=== PATIENT | female | born 1975 | race Caucasian/White ===

== ENCOUNTER → 2016-11-10 | Emergency (ER) | payer MEDICAID | END | disposition left against medical advice (07) | LOC: ER 21:38 | DX: N93.9 Abnormal uterine and vaginal bleeding, unspecified (principal); Z53.21 Procedure and treatment not carried out due to patient leaving prior to being seen by health care provider ==

== ENCOUNTER 2016-11-12 12:31 | Day surgery (SDC) | payer MEDICAID ==
[~2016-11-12] VITALS: Ht 154.9 cm; Wt 63.0 kg
[2016-11-12 14:44] LABS: BASOPHILS % 0.5 % (0.0-2.0); EOSINOPHILS % 0.7 % (0.0-5.0); HEMATOCRIT. 39.3 % (36.0-48.0); HEMOGLOBIN. 13.4 g/dL (12.0-16.0); LYMPHOCYTES % 30.7 % (20.0-50.0); MEAN CORPUSCULAR HEMOGLOBIN 31.5 pg (28.0-32.0); MEAN CORPUSCULAR VOLUME 92.5 fL (81.0-99.0); MEAN PLATELET VOLUME 7.1 fl (7.4-10.4); MONOCYTES % 7.2 % (2.0-8.0); NEUTROPHILS % 60.9 % (40.0-76.0); PLATELET 246 x1000/uL (130-400); RED BLOOD CELL COUNT 4.25 mill/uL (4.2-5.4)
[2016-11-12 14:50] LABS: PROTHROMBIN TIME 10.7 sec (9.4-11.6)
[2016-11-12 15:04] LABS: CARBON DIOXIDE 27 mEq/L (21-32); CHLORIDE 106 mEq/L (98-107)
[2016-11-12 15:13] LABS: B-HCG QUANTITATIVE 2173 mIU/mL (<3)
[2016-11-12] MEDS ORDERED: DEXT 5%/LACTATED RINGERS 1,000 ML IV ONE (16:00)
[2016-11-12] MEDS ORDERED: KETOROLAC 30MG/ML VIAL IV ONE (16:00)
[2016-11-12] MEDS ORDERED: LIDOCAINE HCL 1% 20ML VIAL (Pyxis) INJ ONE (18:37)
[2016-11-12] MEDS ORDERED: SODIUM BICARBONATE 4% (2.4MEQ) 5ML VIAL IV ONE (18:37)
[2016-11-12] MEDS ORDERED: DEXT 5%/0.45% NACL KCL 20MEQ/L 1,000 ML IV SCH (19:08)
[2016-11-12] MEDS: METHYLERGONOVINE MALEATE 0.2 MG/ML IM NR ×2 (19:15→20:54)
[2016-11-12] MEDS ORDERED: KETOROLAC 30MG/ML VIAL IV NR (19:15)
[2016-11-12] MEDS ORDERED: ONDANSETRON HCL 4MG/2ML VIAL IV PRN (19:24)
[2016-11-12] MEDS ORDERED: MORPHINE SULFATE 2 MG/ML CPJ (NOT FOR IM USE) IV PRN (20:00)
[2016-11-12 20:57] VITALS: BP 135/70
== END 2016-11-12 23:30 | disposition home or self-care (01) ==
LOC: ER 12:31 → OR 12:31 → EDBEDREQTM 15:55 → EDBEDREQ 15:55 → ENRESERV 16:38 → ER 18:15 → ORIP 20:33 → OR 20:33 → UNDOADMIN 20:33 → OR 23:30
PROVIDERS: ATTEND Specialist
DX: O03.4 Incomplete spontaneous abortion without complication (principal)
CPT/HCPCS: 36415; 59812; 80053; 84702; 85025; 85610; 86850; 86900; 86901; 88305; 96374; 99285; J1885; J2210; J2405; J3490; J7042; J7121; A4216; J0690; J1200; J2250; J2704; J3010